=== PATIENT | male | born 1990 | race Caucasian/White ===

== ENCOUNTER 2019-12-28 03:39 | Emergency (ER) | payer MEDICAID, SELFPAY ==
[2019-12-28 03:42] VITALS: BP 147/92; PULSE 108; RESP 16; TEMP 37.1; O2SAT 97; BMI 18.8
--- NOTE | 2019-12-28 04:02 | HMH.EDMCLR ---
ED Disposition Clinical Impression: Medical clearance for incarceration Disposition: Home, Self-Care Condition on Discharge: Good Instructions: Substance Use Disorder Additional Instructions: see pcp for follow up Referrals: PCP,Ashlie [Primary Care Provider] - - Critical Care Critical Care Time: No Attestation: On 12/28/19, the high probability of a clinically significant, sudden or life threatening deterioration of the following system(s) required my full and direct attention, intervention and personal management. The time I documented below is in addition to time spent performing reported procedures but includes the following listed in this critical care notation. Medical Decision Making - Medical Records Medical records reviewed: Yes: I reviewed the patient's medical records. - Trevor Inquiry Pt receiving controlled substance: No Vital Signs: 12/28/19 03:42 Temperature 98.7 F Temperature Source Oral Pulse Rate [Left Radial] 108 H Respiratory Rate 16 Blood Pressure [Right Arm] 147/92 H Blood Pressure Mean [Right Arm] 110 Blood Pressure Source [Right Arm] Automatic Cuff Blood Pressure Position [Right Arm] Sitting 02 Sat by Pulse Oximetry 97 Oxygen Delivery Method Room Air Medical Clearance HPI - General Chief complaint: Medical Clearance Stated complaint: medical clearance Time Seen by Provider: 12/28/19 04:00 Mode of Arrival: Ambulatory Source of Information: Patient, Medical Record Limitations: No Limitations Description of Symptoms (Recalled from ER Triage Doc. by RN): pt brought in for medical clearence. pt reported using heroine about 2 hours ago. pt denies any complaints at this time - History of Present Illness HPI Narrative: no specific c/o - concerned at times about hearing voices - MD complaint: medical clearance requested Onset (ago): hour(s) Place: home Compliant with Home Medications: No Traumatic Symptoms: denies traumatic injury Associated Symptoms: denies other symptoms Treatments Prior to Arrival: none Home medications: Home Medications Medication Instructions Recorded Confirmed No Known Home Medications 12/28/19 12/28/19 Allergies/Adverse reactions: Allergies Allergy/AdvReac Type Severity Reaction Status Date / Time No Known Allergies Allergy Verified 12/28/19 03:52 [facility] History - Hepatitis A Screen Drug use history?: Yes High risk sexual behaviors?: No History of sexually transmitted infection?: No Currently employed?: No Childcare worker?: No Do you have indoor plumbing?: Yes Do you have electricity?: Yes Attestation statement:: This patient has been screened for Hepatitis A risk factors. I have reviewed the patient's past medical history: Yes ROS Obtained: Yes All systems reviewed & no additional complaints Physical Exam - General General appearance: alert - Head Head exam: normocephalic - Eye Eye exam: Present: PERRL, EOMI. Absent: scleral icterus - ENT ENT exam: Present: normal oropharynx, TM's normal bilaterally - Neck Neck exam: Present: trachea midline - Respiratory Respiratory exam: Present: normal lung sounds bilaterally - Cardiovascular Cardiovascular exam: Present: regular rate - Abdominal Exam Abdominal exam: Present: soft - Extremities Exam Extremities exam: Present: full ROM - Neurological Exam Neurological exam: Present: alert, CN II-XII intact. Absent: motor sensory deficit - Psychiatric Psychiatric exam: Present: flat affect, other (no pschycosis). Absent: manic, suicidal ideation - Skin Skin exam: Absent: rash
[2019-12-28 04:10] VITALS: BP 131/86; PULSE 84; RESP 16; TEMP 36.7; O2SAT 97
== END 2019-12-28 04:11 | disposition home or self-care (01) ==
PROVIDERS: Emergency Provider Emergency Medicine
DX: F11.10 Opioid abuse, uncomplicated (principal)
CPT/HCPCS: 99282

== ENCOUNTER 2020-01-10 18:41 | Emergency (ER) | payer MEDICAID, SELFPAY ==
--- NOTE | 2020-01-10 18:41 | PC.NURSE ---
Pt states that he took a line of heroin and he was given 2 rounds of narcan by his neighbor. Pt states that he is back to his baseline. A&O x4. Denies any issues at this time.
--- NOTE | 2020-01-10 18:48 | PC.NURSE ---
Instructed to return to ER if he develops any problems. Verbalizing understanding
[2020-01-10 18:49] VITALS: BP 141/93; PULSE 97; RESP 100; TEMP 36.5
== END 2020-01-10 19:00 | disposition left against medical advice (07) ==
LOC: ER 18:55
PROVIDERS: Emergency Provider Emergency Medicine
DX: Z53.21 Procedure and treatment not carried out due to patient leaving prior to being seen by health care provider (principal); T50.901A Poisoning by unspecified drugs, medicaments and biological substances, accidental (unintentional), initial encounter
CPT/HCPCS: 99211

== ENCOUNTER 2020-03-31 18:24 | Emergency (ER) | payer OTHER, SELFPAY ==
[2020-03-31 18:26] VITALS: BP 134/100; PULSE 96; RESP 16; TEMP 36.8; O2SAT 96
--- NOTE | 2020-03-31 18:32 | HMH.EDGENADL ---
ED Disposition Clinical Impression: Medical clearance for incarceration Disposition: Home, Self-Care Condition on Discharge: Good Additional Instructions: He has normal vital signs except for mildly elevated blood pressure to 134/100 mmHg. At this time, no indication for emergent work-up as this is only mildly elevated blood pressure and my suspicion for any endorgan dysfunction is rather low. High blood pressure cannot be diagnosed in the ER based on one high reading. This should be followed up on on a routine basis in an outpatient setting. Patient medically cleared. Referrals: PCP,No [Primary Care Provider] - - Critical Care Critical Care Time: No Attestation: On , the high probability of a clinically significant, sudden or life threatening deterioration of the following system(s) required my full and direct attention, intervention and personal management. The time I documented below is in addition to time spent performing reported procedures but includes the following listed in this critical care notation. Medical Decision Making - Medical Records Medical records reviewed: Yes: I reviewed the patient's medical records. - Trevor Inquiry Pt receiving controlled substance: No Medical Decision Narrative: Patient presents to the emergency department for medical clearance. At this time, patient denies symptoms. He has normal vital signs except for mildly elevated blood pressure to 134/100 mmHg. At this time, no indication for emergent work-up as this is only mildly elevated blood pressure my suspicion for any endorgan dysfunction is rather low. high blood pressure cannot be diagnosed in the ER and that should be followed up on on a routine basis in an outpatient setting. Patient medically cleared. Assessment: Medical clearance Elevated blood pressure Disposition: Home with follow-up General Adult HPI - General Stated complaint: Medical Clearance-Police Time Seen by Provider: 03/31/20 18:25 - History of Present Illness HPI narrative: Patient 29-year-old male presenting for medical clearance. Patient states he was arrested for possession. He does endorse heroin use and did use earlier today. No signs of withdrawal. He currently has no complaints. Specifically denies chest pain, shortness of breath, headache, vision changes, abdominal pain, nausea/vomiting, diarrhea/chills, other new concerning symptoms. - Related Data Home Medications Medication Instructions Recorded Confirmed No Known Home Medications 12/28/19 12/28/19 Allergies Allergy/AdvReac Type Severity Reaction Status Date / Time No Known Allergies Allergy Verified 12/28/19 03:52 [facility] History - Hepatitis A Screen Attestation statement:: This patient has been screened for Hepatitis A risk factors. ROS Obtained: Yes All systems reviewed & no additional complaints Physical Exam - General General appearance: alert, in no apparent distress - Head Head exam: atraumatic, normocephalic - Eye Eye exam: Present: normal appearance, PERRL - ENT ENT exam: Present: normal exam, normal oropharynx - Neck Neck exam: Present: normal inspection, full ROM - Chest Chest inspection: Present: normal inspection, symmetric chest wall rise - Respiratory Respiratory exam: Present: normal lung sounds bilaterally. Absent: respiratory distress - Cardiovascular Cardiovascular exam: Present: regular rate, normal rhythm - Abdominal Exam Abdominal exam: Present: soft. Absent: distention - Extremities Exam Extremities exam: Present: normal inspection, full ROM - Back Exam Back exam: Present: normal inspection, full ROM - Neurological Exam Neurological exam: Present: alert, oriented X3 - Psychiatric Psychiatric exam: Present: normal affect, normal mood - Skin Skin exam: Present: warm, dry
[2020-03-31 19:01] VITALS: BP 132/94; PULSE 78; RESP 16; TEMP 36.6; O2SAT 98
== END 2020-03-31 19:06 | disposition home or self-care (01) ==
LOC: ER 18:54
PROVIDERS: Emergency Provider Emergency Medicine
DX: F11.10 Opioid abuse, uncomplicated (principal); R03.0 Elevated blood-pressure reading, without diagnosis of hypertension
CPT/HCPCS: 99282

== ENCOUNTER 2020-04-29 22:40 | Emergency (ER) | payer OTHER, SELFPAY ==
[2020-04-29 22:49] VITALS: BP 122/82; PULSE 96; RESP 14; TEMP 36.6; O2SAT 100
--- NOTE | 2020-04-29 22:57 | HMH.EDMCLR ---
ED Disposition Clinical Impression: Medical clearance for incarceration Disposition: Home, Self-Care Condition on Discharge: Good Instructions: Health Screening for Men: Why and When You Should Go to the Doctor Additional Instructions: see pcp for follow up Referrals: PCP,No [Primary Care Provider] - - Critical Care Critical Care Time: No Attestation: On 04/29/20, the high probability of a clinically significant, sudden or life threatening deterioration of the following system(s) required my full and direct attention, intervention and personal management. The time I documented below is in addition to time spent performing reported procedures but includes the following listed in this critical care notation. Medical Decision Making - Medical Records Medical records reviewed: Yes: I reviewed the patient's medical records. - Trevor Inquiry Pt receiving controlled substance: No Vital Signs: 04/29/20 22:49 Temperature 97.9 F Temperature Source Oral Pulse Rate [Right] 96 H Respiratory Rate 14 Blood Pressure [Right Arm] 122/82 Blood Pressure Mean [Right Arm] 95 Blood Pressure Source [Right Arm] Automatic Cuff Blood Pressure Position [Right Arm] Sitting 02 Sat by Pulse Oximetry 100 Oxygen Delivery Method Room Air Medical Clearance HPI - General Chief complaint: Medical Clearance Stated complaint: medical clearance Time Seen by Provider: 04/29/20 22:55 Mode of Arrival: Ambulatory Source of Information: Patient, Medical Record Description of Symptoms (Recalled from ER Triage Doc. by RN): Pt here via polce for medical clearance, no c/o by pt at this time. - History of Present Illness HPI Narrative: no specific c/o MD complaint: medical clearance requested Onset (ago): hour(s) Reason for Medical Clearance: medical condition Place: home Traumatic Symptoms: denies traumatic injury Associated Symptoms: denies other symptoms Treatments Prior to Arrival: none Home medications: Home Medications Medication Instructions Recorded Confirmed No Known Home Medications 12/28/19 03/31/20 Allergies/Adverse reactions: Allergies Allergy/AdvReac Type Severity Reaction Status Date / Time No Known Allergies Allergy Verified 03/31/20 18:46 [facility] History - Hepatitis A Screen Drug use history?: No High risk sexual behaviors?: No History of sexually transmitted infection?: No Currently employed?: No Childcare worker?: No Do you have indoor plumbing?: Yes Do you have electricity?: Yes Attestation statement:: This patient has been screened for Hepatitis A risk factors. I have reviewed the patient's past medical history: Yes Medical History: Denies:: Diabetes Mellitus Type 1, Diabetes Mellitus Type 2 - Social History Smoking Status: Current every day smoker Tobacco Type: cigarettes # Packs/Day (cigarettes): 1 Alcohol Intake: never Substance Use Type: methamphetamine Last Used Substance: just [employer] Occupational Status: unemployed ROS Obtained: Yes All systems reviewed & no additional complaints Physical Exam - General General appearance: alert - Head Head exam: normocephalic - Eye Eye exam: Present: PERRL, EOMI - ENT ENT exam: Present: mucous membranes moist - Neck Neck exam: Present: trachea midline - Respiratory Respiratory exam: Absent: respiratory distress - Cardiovascular Cardiovascular exam: Present: regular rate - Abdominal Exam Abdominal exam: Present: soft - Extremities Exam Extremities exam: Present: full ROM - Neurological Exam Neurological exam: Present: alert, oriented X3, CN II-XII intact - Psychiatric Psychiatric exam: Present: normal affect - Skin Skin exam: Absent: rash
[2020-04-29 23:30] VITALS: BP 122/82; PULSE 94; RESP 14; TEMP 36.6; O2SAT 100
== END 2020-04-29 23:30 | disposition home or self-care (01) ==
PROVIDERS: Emergency Provider Emergency Medicine
DX: Z00.8 Encounter for other general examination (principal); F17.210 Nicotine dependence, cigarettes, uncomplicated
CPT/HCPCS: 99282